=== PATIENT | male | born 1950 | race Caucasian/White ===

== ENCOUNTER 2024-01-23 14:49 | Emergency (ER) | payer MEDICARE, OTHER ==
[~2024-01-23] VITALS: Ht 177.8 cm; Wt 131.8 kg
[~2024-01-23 14:49] MED LIST: ALLOPURINOL100 MG PO; AMLODIPINE BESY10 MG PO; CARVEDILOL12.5 MG PO; DOXYCYCLINE HY100 MG PO; FLOMAX0.4 MG PO; HYDROCHLOROTHIA25 MG PO; LISINOPRIL10 MG PO; METHYLPREDNISOLO4 M1 PO; PAXLOVID 300-11 EACH PO; PREDNISONE20 MG PO; PROVENTIL HFA6.7 GM INH
[2024-01-23 15:22] LABS: BASOPHILS 0.6 % (0-2); EOSINOPHILS 1.9 % (0-6); HEMATOCRIT 45.5 % (35.0-50.0); HEMOGLOBIN 15.5 g/dL (12.0-18.0); LYMPHOCYTES 17.5 % (24-44); MCH 31.4 (27-36); MCHC 34.1 g/dl (30-36); MCV 92.1 fl (81-99); MONOCYTES 10.3 % (0-12); NEUTROPHILS 69.7 % (39-80); PLATELET COUNT 213 K/uL (140-440); RBC 4.94 M/ul (4.3-5.7)
[2024-01-23 15:31] LABS: INR 0.98 (0.80-1.30); PROTIME 12.6 Sec (11.2-14.2)
[2024-01-23 15:33] LABS: PARTIAL THROMBOPLASTIN TIME 28.3 Sec (22.9-41.3)
[2024-01-23 15:41] LABS: ALBUMIN 3.3 g/dL (3.4-5.0); ALBUMIN/GLOBULIN RATIO 0.97 (1.1-2.4); ANION GAP 10.2 (7-21); BILIRUBIN, TOTAL 0.7 ng/dL (0.2-1.0); BUN/CREATININE RATIO 15.57 (6.0-28.6); CALCIUM 8.8 mg/dL (8.5-10.1); CREATININE, SERUM 1.22 mg/dL (0.70-1.30); POTASSIUM 3.2 mmol/L (3.5-5.1); PROTEIN, TOTAL 6.7 g/dL (6.4-8.2)
[2024-01-23 18:34] VITALS: BP 115/72
--- NOTE | 2024-01-24 22:17 | EKG ---
[facility] [address] [place] [address] Signed Normal sinus rhythm Right bundle branch block Left anterior fascicular block Bifascicular block Abnormal ECG When compared with ECG of 23-OCT-2022 10:14, No significant change was found Confirmed by Antonino Dooley MD () on 01/24/2024 10:17:20 PM Electronically Signed By: ANTONINO DOOLEY MD 01/24/24 2217 PATIENT NAME: CAM LAM Electrocardiogram DATE OF : 50 PHYSICIAN: ANTONINO DOOLEY MD REPORT #: [id number] REPORT IS CONFIDENTIAL AND NOT TO BE RELEASED WITHOUT AUTHORIZATION
== END 2024-01-23 18:33 | disposition home or self-care (01) ==
LOC: ED 14:49
PROVIDERS: Emergency Medicine
DX: M54.6 Pain in thoracic spine (principal); I72.2 Aneurysm of renal artery; I45.10 Unspecified right bundle-branch block; I45.2 Bifascicular block; I10 Essential (primary) hypertension; Z79.899 Other long term (current) drug therapy
CPT/HCPCS: 36415; 71045; 71275; 74174; 80053; 84484; 85025; 85379; 85610; 85730; 93005; 93010; 99284-25; Q9967